=== PATIENT | male | born 1970 | race Caucasian/White ===

== ENCOUNTER → 2020-11-01 | Outpatient (CLI) | payer OTHER ==
[~2020-11-01] VITALS: Ht 182.9 cm; Wt 106.6 kg
[~2020-11-01] MED LIST: ANIMAL SHAPES1 EAC3 PO; FLUOXETINE HCL40 MG PO; GLUCOSAMINE HC500 M1 PO; VYVANSE30 MG PO; WELLBUTRIN SR100 MG PO
--- NOTE | 2020-11-03 08:19 | P ---
[facility] [place] [address] PROCEDURE REPORT Name: YAMILE LISA Room #: REG TALHA Diaz#: [id number] Admission: 11/01/20 Attend Phys: Ronald Arboleda Discharge: Date of : 68 Report #: [id number] THIS REPORT FOR: cc: Mazin Gunderson MD, Matthew MD McElhinney, Christian C. MD ~ cc: Mazin Gunderson MD DATE OF SERVICE: 11/01/2020 PROCEDURE PERFORMED: Upper endoscopy with biopsies. HISTORY OF PRESENT ILLNESS: The patient is a 49-year-old male who was seen by myself on 09/19/2020 in the office for midepigastric abdominal pain and dyspepsia. He had a colonoscopy earlier this year that was normal other than a few polyps. He had a history of gallstones and underwent a laparoscopic cholecystectomy in July, but reports no improvement in his symptoms. He did try taking Nexium and Tums for a period of time without any improvement. He denies any nausea, vomiting, or dysphagia. No previous history of upper endoscopy. DESCRIPTION OF PROCEDURE: The risks and benefits of the procedure were explained to the patient, those risks including but not limited to bleeding, perforation, and the risk of sedation. He understood these risks and gave me informed consent. Sedation was given using propofol per anesthesia. Next, using a standard Olympus upper endoscope, the scope was placed in the patient's mouth and advanced under direct vision through the esophagus, stomach and into the second portion of the duodenum. The esophagus was normal throughout. The GE junction was normal. The gastric fundus was normal. In the gastric body on the lesser curve, was a 2 cm submucosal mass. No ulceration was noted. In the gastric antrum, mild gastritis was noted. Biopsies were obtained to rule out H. pylori. The pylorus was normal and patent. The duodenal bulb, first and second portion were all normal. Biopsies were obtained to rule out celiac sprue. The scope was then withdrawn and the procedure terminated. The patient tolerated the procedure well. IMPRESSION: 1. Mild gastritis. 2. Submucosal mass lesser curvature of the gastric body approximately 2 cm in diameter. 3. Otherwise, normal upper endoscopy. RECOMMENDATIONS: 1. Await biopsy results. 2. Would recommend proceeding with an endoscopic ultrasound for further evaluation of submucosal mass. [address] [address] PROCEDURE REPORT Name: YAMILE LISA Room #: REG TALHA Diaz#: [id number] Admission: 11/01/20 Attend Phys: Ronald Arboleda Discharge: Date of : 68 Report #: [id number] Thank you for allowing me to participate in his care. <ELECTRONICALLY SIGNED> By: Ronald Shell MD 11/03/20 [id number] Ronald Shell MD /nt
== END | disposition home or self-care (01) ==
LOC: GI 07:01
PROVIDERS: ATTEND Specialist
DX: R10.13 Epigastric pain (principal); K29.70 Gastritis, unspecified, without bleeding; K31.89 Other diseases of stomach and duodenum; K21.9 Gastro-esophageal reflux disease without esophagitis; F32.9 Major depressive disorder, single episode, unspecified; F41.9 Anxiety disorder, unspecified; Z98.890 Other specified postprocedural states; Z79.899 Other long term (current) drug therapy; Z20.822 Contact with and (suspected) exposure to COVID-19; Z90.49 Acquired absence of other specified parts of digestive tract
CPT/HCPCS: 62110; 62900